=== PATIENT | male | born 1980 | race Caucasian/White ===

== ENCOUNTER 2020-12-16 16:55 | Emergency (ER) | payer BC, OTHER ==
[~2020-12-16] VITALS: Ht 180.3 cm; Wt 132.4 kg
[~2020-12-16 16:55] MED LIST: CIME-49 PO; FARX1TAB3 PO; GABA600T4 PO; PANT40TA29 PO; ROPI2TAB24 PO; ROSU20TA5 PO; SERT50TA29 PO; VICT18IN SC
[2020-12-16] MEDS ORDERED: ABIL1TAB13 PO (17:47)
[2020-12-16] MEDS ORDERED: LANS15CA PO (17:47)
[2020-12-16] MEDS ORDERED: FAMO40TA3 PO (17:47)
[2020-12-16] MEDS ORDERED: MELO15TA28 PO (17:47)
[2020-12-16] MEDS ORDERED: ALBUTEROL 90 MCG/ACT 8GM HFA INHALER INH ONE (18:05)
[2020-12-16] MEDS ORDERED: ASPIRIN 81 MG CHEW TABLET PO ONE (18:05)
[2020-12-16 18:30] LABS: BASO % 0.3 % (0.0-1.0); EOS # 0.1 10^3/uL (0.0-0.5); HEMATOCRIT 46.9 % (42.0-52.0); HEMOGLOBIN 16.6 g/dl (13.5-17.5); LYMPH # 1.5 10^3/uL (1.5-5.0); MEAN CORPUSCULAR HEMOGLOBIN 29.4 pg (27.0-33.0); MEAN CORPUSCULAR HGB CONC 35.4 g/dl (32.0-36.5); MONO # 0.3 10^3/uL (0.0-0.8); MONO % 3.9 % (2.0-8.0); NEUTROPHILS # 6.6 10^3/uL (1.5-8.5); NEUTROPHILS % 76.1 % (36.0-66.0); PLATELET COUNT, AUTOMATED 185 10^3/uL (150-450); RED BLOOD COUNT 5.65 10^6/uL (4.30-6.10); WHITE BLOOD COUNT 8.7 10^3/uL (4.0-10.0)
--- NOTE | 2020-12-16 18:33 | REP ---
INDICATION: sob. COMPARISON: Comparison study December 06, 2011. TECHNIQUE: Portable upright AP chest radiograph. FINDINGS: The lungs are well inflated and clear. The pleural angles are sharp. Heart size is normal. Pulmonary vasculature is not increased. Cardiomediastinal silhouette is unremarkable. No bony abnormality is seen. Previously noted mediastinal lymphadenopathy is no longer apparent. IMPRESSION: No active disease. <Electronically signed by Andriy Lema > 12/16/20 [id number]
[2020-12-16 18:40] LABS: ABG BASE EXCESS -0.2 (-2.0-2.0); ABG HCO3 23.9 MEQ/L (22.0-26.0); ABG O2 SATURATION 94.9 % (95.0-99.0); ABG PARTIAL PRESSURE CO2 37.7 mmHg (35.0-45.0); ABG STANDARD HCO3 24.2 MEQ/L (22.0-26.0); ABG TOTAL CO2 25.1 MEQ/L (22.0-29.0)
[2020-12-16 18:45] VITALS: BP 144/77
[2020-12-16 19:28] LABS: BLOOD UREA NITROGEN 18 MG/DL (7-18); CALCIUM LEVEL 8.3 MG/DL (8.5-10.1); CARBON DIOXIDE LEVEL 28 MEQ/L (21-32); CHLORIDE LEVEL 104 MEQ/L (98-107); CK-MB VALUE MASS 1.7 NG/ML (<3.6); CPK CREATINE PHOSPHOKINASE 207 U/L (39-308); CREATININE FOR GFR 0.83 MG/DL (0.70-1.30); GLOMERULAR FILTRATION RATE > 60.0 (>60); GLUCOSE, FASTING 133 MG/DL (70-100); MB/CK RELATIVE INDEX 0.82 (< OR =4); POTASSIUM SERUM 4.3 MEQ/L (3.5-5.1); SODIUM LEVEL 139 MEQ/L (136-145); TROPONIN I < 0.02 NG/ML (< 0.10)
[2020-12-16] MEDS ORDERED: PROAAER10 INH (19:49)
--- NOTE | 2020-12-18 07:32 | ECGEPIP ---
[facility] - ED Test Date: 2020-12-16 Pat Name: NAGI REYES Department: Room: - Gender: Male [employer] President: MARCELINO : 1980 Requested By: Caroline Cruz Order Number: [id number] Reading MD: Caroline Cruz Measurements Intervals [place] Rate: 82 P: 52 TN: 186 QRS: 33 QRSD: 92 T: 54 QT: 352 QTc: 411 Interpretive Statements Normal sinus rhythm No prior Electronically Signed on 12-18-2020 7:32:03 EDT by Caroline Cruz
== END 2020-12-16 20:13 | disposition home or self-care (01) ==
LOC: M ED 16:55
DX: R06.02 Shortness of breath (principal); R07.89 Other chest pain; Z79.899 Other long term (current) drug therapy; J30.81 Allergic rhinitis due to animal (cat) (dog) hair and dander; Z91.030 Bee allergy status; F17.210 Nicotine dependence, cigarettes, uncomplicated

== ENCOUNTER → 2021-01-07 | Outpatient (CLI) | payer BC, OTHER ==
[~2021-01-07] MED LIST changes: +ABIL1TAB13 PO; +FAMO40TA3 PO; +LANS15CA PO; +MELO15TA28 PO; +PROAAER10 INH
--- NOTE | 2021-01-07 09:16 | REP ---
INDICATION: ABN IMAGING TECHNIQUE: Real time B-mode charles scale and color Doppler ultrasound examination using curved array transducer. FINDINGS: Liver is hyperechoic and enlarged measuring 24 cm in craniocaudal length. No focal hepatic lesions are identified. Hepatic venous and portal venous Doppler interrogation demonstrates normal flow direction and velocities. Phasicity to the hepatic vein suggests underlying cardiac dysfunction. Hepatic artery demonstrates normal velocity and resistive index. Spleen is enlarged (splenic index: 1732) without focal splenic lesion identified. Pancreas is incompletely evaluated due to interposed bowel gas but visualized portions appear normal. Gallbladder is unremarkable. No biliary ductal dilatation is appreciated and the common bile duct measures 2.9 mm diameter. The bilateral kidneys are normal in reniform shape without hydronephrosis or obvious abnormality. Right kidney measures 13.4 x 6.3 x 5.3 cm. Left kidney measures 14.8 x 6.3 x 5.2 cm. Abdominal aorta appears normal and measures 2.3 cm maximal diameter. No ascites. IMPRESSION: Hepatosplenomegaly and hepatosteatosis. Relatively normal Doppler interrogation of the hepatic vasculature. Mildly increased phasicity suggest the possibility of underlying cardiac dysfunction. <Electronically signed by Jose Morales > 01/07/21 [id number]
== END ==
LOC: M RAD 08:02
PROVIDERS: ATTEND Internal Medicine Gastroenterology
DX: R93.3 Abnormal findings on diagnostic imaging of other parts of digestive tract (principal)

== ENCOUNTER → 2021-04-27 | Outpatient (CLI) | payer BC, OTHER | LOC: M LABSMTC 09:50 | PROVIDERS: ATTEND Anesthesiology | DX: Z01.818 Encounter for other preprocedural examination (principal); Z11.52 Encounter for screening for COVID-19 ==

== ENCOUNTER 2021-05-01 06:40 | Day surgery (SDC) | payer BC ==
[~2021-05-01] VITALS: Ht 180.3 cm; Wt 129.6 kg
[~2021-05-01 06:40] MED LIST changes: +NS 1,000 ML IV ONE
[2021-05-01] MEDS ORDERED: propofoL 500 MG/50 ML VIAL As Ordered ONE (06:57)
[2021-05-01] MEDS ORDERED: GLYCOPYRROLATE INJ 0.2 MG/ML 2 ML VIAL As Ordered ONE (07:02)
[2021-05-01] MEDS ORDERED: LIDOCAINE 2% 100MG/5ML SDV (FOR ANES.) As Ordered ONE (07:02)
[2021-05-01] MEDS ORDERED: propofoL 200 MG/20 ML VIAL As Ordered ONE (07:49)
[2021-05-01 08:42] VITALS: BP 121/76
== END 2021-05-01 08:45 | disposition home or self-care (01) ==
LOC: M OPP 06:40
PROVIDERS: ATTEND Internal Medicine Gastroenterology
DX: K63.5 Polyp of colon (principal); K64.8 Other hemorrhoids; R19.7 Diarrhea, unspecified; K31.89 Other diseases of stomach and duodenum; K74.60 Unspecified cirrhosis of liver; E11.9 Type 2 diabetes mellitus without complications; G47.30 Sleep apnea, unspecified; Z79.899 Other long term (current) drug therapy; Z91.030 Bee allergy status; F17.210 Nicotine dependence, cigarettes, uncomplicated

== ENCOUNTER 2022-01-04 16:00 | Emergency (ER) | payer BC, OTHER ==
[~2022-01-04] VITALS: Ht 180.3 cm; Wt 138.8 kg
[2022-01-04 16:00] VITALS: BP 135/88
[~2022-01-04 16:00] MED LIST changes: -NS 1,000 ML IV ONE
== END 2022-01-04 17:54 | disposition left against medical advice (07) ==
LOC: M ED 16:00
DX: Z53.21 Procedure and treatment not carried out due to patient leaving prior to being seen by health care provider (principal)

== ENCOUNTER → 2022-03-16 | Outpatient (CLI) | payer BC ==
[~2022-03-16] MED LIST changes: +GLIP5TAB8; +METF10004
== END ==
LOC: M LABSMTC 09:21
PROVIDERS: ATTEND Anesthesiology
DX: Z01.818 Encounter for other preprocedural examination (principal)

== ENCOUNTER 2022-03-19 06:59 | Day surgery (SDC) | payer BC, MEDICAID ==
[~2022-03-19] VITALS: Ht 180.3 cm; Wt 137.3 kg
[2022-03-19] MEDS ORDERED: LIDOCAINE 1% SDV 5ML VIAL SC PRN (07:45)
[2022-03-19] MEDS ORDERED: LR 1,000 ML IV SCH ×2 (07:45→10:30)
[2022-03-19] MEDS ORDERED: INSULIN LISPRO (NovoLOG) PER UNIT SC ONE (08:05)
[2022-03-19] MEDS ORDERED: PANT40TA29 PO (08:06)
[2022-03-19] MEDS ORDERED: fentaNYL 250 MCG/5 ML INJECTION As Ordered ONE (08:14)
[2022-03-19] MEDS ORDERED: ONDANSETRON 4MG 2ML VIAL As Ordered ONE (08:14)
[2022-03-19] MEDS ORDERED: MIDAZOLAM INJ 2MG/2ML VIAL As Ordered ONE (08:14)
[2022-03-19] MEDS ORDERED: KETOROLAC 60MG 2ML VIAL As Ordered ONE (08:14)
[2022-03-19] MEDS ORDERED: propofoL 200 MG/20 ML VIAL As Ordered ONE ×2 (08:15→10:06)
[2022-03-19] MEDS ORDERED: ACETAMINOPHEN 1000MG 100ML IV BAG As Ordered ONE (08:15)
[2022-03-19] MEDS ORDERED: LIDOCAINE 2% 100MG/5ML SDV (FOR ANES.) As Ordered ONE (08:15)
[2022-03-19] MEDS ORDERED: BUPIVACAINE HCL 0.25% 30ML VIAL As Ordered ONE (09:05)
[2022-03-19] MEDS ORDERED: POLYSPORIN TOPICAL OINTMENT 15GM As Ordered ONE (09:05)
[2022-03-19] MEDS ORDERED: ceFAZolin 1GM VIAL As Ordered ONE (09:32)
[2022-03-19] MEDS ORDERED: ceFAZolin 2 GM/D5W 50 ML IV BAG As Ordered ONE (09:32)
[2022-03-19] MEDS ORDERED: ceFAZolin SOD 1 GM in D5W MINI-BAG PLUS 50 ML IV ONE (10:00)
[2022-03-19] MEDS ORDERED: ceFAZolin SOD 2 GM in IV 1 EA IV ONE (10:00)
[2022-03-19] MEDS ORDERED: oxyCODONE 5MG TAB PO PRN (10:30)
[2022-03-19] MEDS ORDERED: ONDANSETRON 4MG 2ML VIAL IV PRN (10:30)
[2022-03-19] MEDS ORDERED: fentaNYL 100 MCG/2 ML INJECTION IV PRN (10:30)
[2022-03-19] MEDS ORDERED: MORPHINE 2 MG/ML 1ML VIAL IV PRN (10:30)
[2022-03-19] MEDS ORDERED: INSULIN LISPRO (NovoLOG) PER UNIT SC PRN (10:40)
[2022-03-19] MEDS ORDERED: PERC5TAB12 PO (10:41)
[2022-03-19 11:44] VITALS: BP 124/71
== END 2022-03-19 12:02 | disposition home or self-care (01) ==
LOC: M SDC 06:59
PROVIDERS: ATTEND Orthopaedic Surgery Hand Surgery
DX: M77.11 Lateral epicondylitis, right elbow (principal); E11.40 Type 2 diabetes mellitus with diabetic neuropathy, unspecified; L40.9 Psoriasis, unspecified; G47.33 Obstructive sleep apnea (adult) (pediatric); E66.01 Morbid (severe) obesity due to excess calories; Z68.41 Body mass index [BMI] 40.0-44.9, adult; I10 Essential (primary) hypertension; E78.00 Pure hypercholesterolemia, unspecified; K21.9 Gastro-esophageal reflux disease without esophagitis; F41.9 Anxiety disorder, unspecified; D86.9 Sarcoidosis, unspecified; J44.9 Chronic obstructive pulmonary disease, unspecified; Z99.81 Dependence on supplemental oxygen; R05.9 Cough, unspecified; Z79.899 Other long term (current) drug therapy; Z79.84 Long term (current) use of oral hypoglycemic drugs; F17.210 Nicotine dependence, cigarettes, uncomplicated; Z91.030 Bee allergy status; J30.81 Allergic rhinitis due to animal (cat) (dog) hair and dander
CPT/HCPCS: 24358; 88304; J0131; J0690; J1100; J1815; J1885; J2250; J2405; J3010; S0020